=== PATIENT | male | born 1935 | race Caucasian/White ===

== ENCOUNTER 2017-08-16 22:15 | Emergency (ER) | payer MEDICARE, OTHER ==
[2017-08-16] MEDS ORDERED: Ondansetron 4 MG/2 ML SDV IVPUSH ONE (23:16)
[2017-08-16] MEDS ORDERED: Sodium Chloride 0.9% 10 ML Syringe FLUSH PRN (23:16)
--- NOTE | 2017-08-17 02:03 | EDM.PDOC ---
ED HPI GENERAL MEDICAL PROBLEM - General Chief Complaint: Diabetic Complaint Stated Complaint: HIGH BLOOD SUGARS Time Seen by Provider: 08/16/17 22:44 Source of Information: Reports: Patient, Family History Limitations: Reports: No Limitations - History of Present Illness INITIAL COMMENTS - FREE TEXT/NARRATIVE: This patient was brought in by his because of uncontrolled blood sugars. He has type 2 diabetes and takes N Griffiths for this he takes Lantus as well as Humalog. He said that he had not been on any Humalog since March because of some problems with insurance. Apparently that he was using too much. They got with his doctor and I guess a new prescription was written so he got some today and tonight was the first time that he is taking any. He continued to use the Lantus in the interim. He was seen in the ER in [place] earlier today. Tonight at supper his blood sugar was 575. That was at 6 PM and he took 15 units of Humalog. An hour later the blood sugar was in the mid 300s so he took an additional 20 units of Humalog. After that his decided to bring him to the hospital area she felt that he may have overdosed on and swollen. He hasn't eaten much at all today he vomited once right before coming to the ER. He's had some bronchitis recently - Related Data Allergies Allergy/AdvReac Type Severity Reaction Status Date / Time No Known Allergies Allergy Verified 08/16/17 22:37 Home Meds: Home Meds Aspirin 81 mg PO DAILY 08/16/17 [History] Clopidogrel [Plavix] 75 mg PO DAILY 08/16/17 [History] Enalapril [Vasotec] 7.5 mg PO DAILY 08/16/17 [History] Insulin Glarg,Human.Rec.Analog [Lantus Solostar] 20 unit SQ BID 08/16/17 [ History] Insulin Lispro [HumaLOG] 11 - 15 unit SQ TID 08/16/17 [History] Metoprolol Succinate 100 mg PO DAILY 08/16/17 [History] Spironolactone [Aldactone] 25 mg PO DAILY 08/16/17 [History] Past Medical History Cardiovascular History: Reports: Stents Respiratory History: Reports: Other (See Below) Other Respiratory History: has bronchitis now Neurological History: Reports: TIA Endocrine/Metabolic History: Reports: Diabetes, Type II - Infectious Disease History Infectious Disease History: Reports: Chicken Pox, Measles, Mumps - Past Surgical History Cardiovascular Surgical History: Reports: Coronary Artery Bypass, Coronary Artery Stent GI Surgical History: Reports: Hernia Repair/Other Social & Family History - Tobacco Use Smoking Status *Q: Never Smoker - Caffeine Use Caffeine Use: Reports: Coffee - Recreational Drug Use Recreational Drug Use: No ED ROS GENERAL - Review of Systems Review Of Systems: See Below Constitutional: Reports: No Symptoms HEENT: Reports: No Symptoms Respiratory: Reports: No Symptoms Cardiovascular: Reports: No Symptoms Endocrine: Reports: Other (As per history of present illness) GI/Abdominal: Reports: Vomiting : Reports: No Symptoms Musculoskeletal: Reports: No Symptoms Skin: Reports: No Symptoms ED EXAM GENERAL NO PERIP PULSE - Physical Exam Exam: See Below Exam Limited By: No Limitations General Appearance: Alert, WD/WN, No Apparent Distress Eye Exam: Bilateral Eye: Normal Inspection Nose: Normal Inspection Throat/Mouth: Normal Inspection Head: Atraumatic Neck: Normal Inspection Respiratory/Chest: Lungs Clear Cardiovascular: Regular Rate, Rhythm, No Murmur GI/Abdominal: Soft, Non-Tender Extremities: Normal Inspection Neurological: Alert, Oriented, Normal Cognition Psychiatric: Normal Affect Skin Exam: Warm, Dry Course - Vital Signs Last Recorded V/S: Last Vital Signs Temp 35.5 C 08/16/17 22:43 Pulse 93 08/17/17 01:34 Resp 16 08/16/17 22:43 BP 105/46 L 08/17/17 01:34 Pulse Ox 93 L 08/16/17 22:43 - Orders/Labs/Meds Orders: Active Orders 24 hr Category Date Time Status Saline Lock Insert [OM.PC] Urgent Oth 08/16/17 23:16 Ordered Labs: Laboratory Tests 08/16/17 08/16/17 Range/Units 23:22 23:22 WBC 6.2 (4.5-11.0) K/uL RBC 4.56 (4.30-5.90) M/uL Hgb 13.5 (12.0-15.0) g/dL Hct 39.3 L (40.0-54.0) % MCV 86 (80-98) fL MCH 30 (27-31) pg MCHC 34 (32-36) % Plt Count 171 (150-400) K/uL Neut % (Auto) 73 H (36-66) % Lymph % (Auto) 13 L (24-44) % [place] % (Auto) 14 H (2-6) % Eos % (Auto) 0 L (2-4) % Baso % (Auto) 0 (0-1) % Sodium 133 L (140-148) mmol/L Potassium 3.8 (3.6-5.2) mmol/L Chloride 98 L (100-108) mmol/L Carbon Dioxide 23 (21-32) mmol/L Anion Gap 15.8 H (5.0-14.0) mmol/L BUN 25 H (7-18) mg/dL Creatinine 1.7 H (0.8-1.3) mg/dL Est Cr Clr Drug Dosing 31.86 mL/min Estimated GFR (MDRD) 39 L (>60) Glucose 69 L (74-106) mg/dL Calcium 8.6 (8.5-10.1) mg/dL Total Bilirubin 0.4 (0.2-1.0) mg/dL AST 38 H (15-37) U/L ALT 29 (12-78) U/L Alkaline Phosphatase 49 (46-116) U/L Total Protein 7.2 (6.4-8.2) g/dL Albumin 3.2 L (3.4-5.0) g/dL Globulin 4.0 H (2.3-3.5) g/dL Albumin/Globulin Ratio 0.8 L (1.2-2.2) Meds: Medications Discontinued Medications Generic Name Dose Route Start Last Admin Trade Name Freq PRN Reason Stop Dose Admin Ondansetron HCl 4 mg 08/16/17 23:16 08/16/17 23:24 Zofran IVPUSH 08/16/17 23:17 4 mg ONETIME ONE Administration Sodium Chloride 10 ml 08/16/17 23:16 08/16/17 23:24 Saline Flush FLUSH 10 ml ASDIRECTED PRN Administration Keep Vein Open - Re-Assessments/Exams Free Text/Narrative Re-Assessment/Exam: 08/17/17 06:42 Labs were noted on this patient. Because his blood sugar was expected possibly go low a saline lock was placed. We began feeding the patient immediately. Initially he ate some pudding and then later on I had him eat some crackers peanut butter and some more pudding and so forth his blood sugars second one was again a little on the low side but the final blood sugar was greater than 200. My purpose here was to ensure that this patient does not become hypoglycemic. His wanted me to admit him and get his blood sugar stabilized and so forth however his blood sugars have been out of control for several months and I explained that he just needs to get back on his regular dose of insulin and work with his doctor to get the blood sugar under control. Departure - Departure Time of Disposition: 02:02 Disposition: Home, Self-Care 01 Condition: Fair Clinical Impression: Hyperglycemia - Discharge Information Instructions: Hyperglycemia, [id number] Referrals: PCP,None [Primary Care Provider] - Forms: ED Department Discharge Additional Instructions: Go back to your regular insulins doses in the morning. Be sure to be consistent with your insulins doses and be consistent with your diet. Plan to see your doctor within the next few days. When you get home try taking a half teaspoon of salt in a glass of water that may help with the cramps - My Orders Last 24 Hours: My Active Orders 08/16/17 23:16 Saline Lock Insert [OM.PC] Urgent - Assessment/Plan Last 24 Hours: My Active Orders 08/16/17 23:16 Saline Lock Insert [OM.PC] Urgent
== END 2017-08-17 02:23 | disposition home or self-care (01) ==
LOC: JP.ED 22:15
DX: E11.65 Type 2 diabetes mellitus with hyperglycemia (principal); Z79.82 Long term (current) use of aspirin; Z79.4 Long term (current) use of insulin; Z79.899 Other long term (current) drug therapy; Z86.73 Personal history of transient ischemic attack (TIA), and cerebral infarction without residual deficits
CPT/HCPCS: 36415; 80053; 82962; 85025; 96374; 99285; J2405; J7050

== ENCOUNTER 2019-11-19 15:50 | Emergency (ER) | payer MEDICARE, OTHER ==
--- NOTE | 2019-11-19 17:15 | EDM.PDOC ---
<Sergio Godfrey - Last Filed: 11/19/19 23:22> ED HPI GENERAL MEDICAL PROBLEM - General Chief Complaint: General Stated Complaint: BLOOD CLOTS Time Seen by Provider: 11/19/19 17:00 - Related Data Allergies Allergy/AdvReac Type Severity Reaction Status Date / Time ezetimibe [From Vytorin] Allergy Other Verified 11/19/19 16:42 simvastatin [From Vytorin] Allergy Other Verified 11/19/19 16:42 Home Meds: Home Meds Aspirin 81 mg PO DAILY 08/16/17 [History] Clopidogrel [Plavix] 75 mg PO DAILY 08/16/17 [History] Insulin Glarg,Human.Rec.Analog [Lantus Solostar] 25 unit SQ BID 08/16/17 [History] Metoprolol Succinate 12.5 mg PO DAILY 08/16/17 [History] Insulin Regular, Human [Novolin R Flexpen] 14 unit SQ TID 11/19/19 [History] Isosorbide Dinitrate 5 mg PO BID 11/19/19 [History] Nitroglycerin [Nitrostat] 0.4 mg SL ASDIRECTED 11/19/19 [History] fluorouraciL [Efudex 5% Cream] 40 gm .XX ASDIRECTED PRN 11/19/19 [History] Course - Re-Assessments/Exams Free Text/Narrative Re-Assessment/Exam: 11/19/19 23:22 I assumed care of patient at change of shift from Dr. Faith. At this time we are awaiting completion of CT angiogram tests of chest, neck, head. After radiology completion and analysis of the studies, I returned to the room to meet with the patient and his . He is asymptomatic at this time. He did have a brief episode of chest pain in the room prior to my first meeting with him that this is a daily occurrence and he took 1 of his own nitroglycerin as is his usual practice. There is no evidence of new thrombus in the chest neck or head. There is significant vascular stenoses everywhere. See radiologist report. I reviewed his case with Dr. Barnhart of the [facility] system. Based on what I described, he does not feel any modification in care needs to occur, specifically the patient does not need heparinization. He should continue current medications, which include aspirin and Plavix. A copy of all of his angiogram studies were provided on disc for patient and his family to review with local provider at home. They should forward it somehow to the [facility] system for inclusion in the patient's record. Contact [facility] cardiology with any additional questions. He was discharged in stable condition. Departure - Departure Time of Disposition: 20:38 Disposition: Home, Self-Care 01 Clinical Impression: Carotid stenosis, bilateral - Discharge Information Instructions: Carotid Artery Disease Referrals: Trev Gillespie MD [Primary Care Provider] - Forms: ED Department Discharge Additional Instructions: Continue current medications. Show the disc of your CAT scan images to Dr. Michelle mata and he could arrange to get it to the [facility] system that is familiar with you. Return to ER if feeling worse in any way. <Wesly Faith - Last Filed: 11/21/19 07:55> ED HPI GENERAL MEDICAL PROBLEM - General Source of Information: Reports: Patient History Limitations: Reports: No Limitations - History of Present Illness INITIAL COMMENTS - FREE TEXT/NARRATIVE: 84-year-old male sent in from an outside hospital for more vascular studies because of recent persistent angina, asymmetric blood pressures in the upper extremities, and positive findings on Doppler ultrasound of the carotid arteries. Patient self has no complaints other than some persistent recurring chest discomfort which is chronic. Onset: Unknown/Unsure Associated Symptoms: Reports: No Other Symptoms denies Pain Score (Numeric/FACES): 0 Past Medical History HEENT History: Reports: Hard of Hearing Cardiovascular History: Reports: Blood Clots/VTE/DVT, CAD, High Cholesterol, Hypertension, Stents Respiratory History: Reports: Other (See Below) Other Respiratory History: has bronchitis now Neurological History: Reports: CVA, TIA Endocrine/Metabolic History: Reports: Diabetes, Type II, Obesity/BMI 30+ - Infectious Disease History Infectious Disease History: Reports: Measles, Mumps - Past Surgical History HEENT Surgical History: Reports: Cataract Surgery Cardiovascular Surgical History: Reports: Coronary Artery Bypass, Coronary Artery Stent GI Surgical History: Reports: Colonoscopy, Hernia Repair/Other Social & Family History - Tobacco Use Smoking Status *Q: Never Smoker Second Hand Smoke Exposure: No - Caffeine Use Caffeine Use: Reports: Coffee, Tea - Recreational Drug Use Recreational Drug Use: No ED ROS GENERAL - Review of Systems Review Of Systems: See Below Constitutional: Denies: Fever, Chills Respiratory: Denies: Shortness of Breath Cardiovascular: Reports: Chest Pain GI/Abdominal: Denies: Abdominal Pain, Nausea, Vomiting Neurological: Denies: Dizziness, Headache ED EXAM, GENERAL - Physical Exam Exam: See Below Exam Limited By: No Limitations General Appearance: Alert, No Apparent Distress Eye Exam: Bilateral Eye: EOMI Head: Atraumatic Neck: Supple, Non-Tender Respiratory/Chest: Lungs Clear Cardiovascular: Regular Rate, Rhythm GI/Abdominal: Soft, Non-Tender Extremities: Pedal Edema (Trace of ankle edema is symmetric), Other (Blood pressure of the upper extremities is equal today) Neurological: Alert, Oriented Course - Vital Signs Last Recorded V/S: Last Vital Signs Temp 97.4 F 11/19/19 16:53 Pulse 73 11/19/19 17:50 Resp 16 11/19/19 17:06 BP 148/72 H 11/19/19 17:50 Pulse Ox 96 11/19/19 17:06 - Orders/Labs/Meds Labs: Laboratory Tests 11/19/19 11/19/19 Range/Units 16:45 16:45 WBC 7.9 (4.5-11.0) K/uL RBC 4.82 (4.30-5.90) M/uL Hgb 13.5 (12.0-15.0) g/dL Hct 42.9 (40.0-54.0) % MCV 89 (80-98) fL MCH 28 (27-31) pg MCHC 32 (32-36) % Plt Count 201 (150-400) K/uL Neut % (Auto) 64 (36-66) % Lymph % (Auto) 26 (24-44) % [place] % (Auto) 8 H (2-6) % Eos % (Auto) 2 (2-4) % Baso % (Auto) 0 (0-1) % Sodium 139 L (140-148) mmol/L Potassium 4.4 (3.6-5.2) mmol/L Chloride 104 (100-108) mmol/L Carbon Dioxide 28 (21-32) mmol/L Anion Gap 11.4 (5.0-14.0) mmol/L BUN 17 (7-18) mg/dL Creatinine 1.4 H (0.8-1.3) mg/dL Est Cr Clr Drug Dosing 36.08 mL/min Estimated GFR (MDRD) 48 L (>60) Glucose 165 H (74-106) mg/dL Calcium 8.7 (8.5-10.1) mg/dL Meds: Medications Discontinued Medications Generic Name Dose Route Start Last Admin Trade Name Nadira PRN Reason Stop Dose Admin Sodium Chloride 84 mls @ 3.5 mls/sec 11/19/19 17:30 11/19/19 18:08 Normal Saline IV 3.5 mls/sec ASDIRECTED MARIA G Administration Sodium Chloride 1,000 mls @ 1,000 mls/hr 11/19/19 17:30 11/19/19 17:39 Normal Saline IV 1,000 mls/hr ASDIRECTED MARIA G Administration Sodium Chloride 100 mls @ 3.5 mls/sec 11/19/19 17:30 11/19/19 18:15 Normal Saline IV 3.5 mls/sec ASDIRECTED MARIA G Administration Iopamidol 100 ml 11/19/19 17:30 11/19/19 18:09 Isovue-370 (76%) IV 100 ml . DIRECTED MARIA G Administration Iopamidol 100 ml 11/19/19 17:30 11/19/19 18:15 Isovue-370 (76%) IV 100 ml . DIRECTED MARIA G Administration Sodium Chloride 10 ml 11/19/19 17:22 11/19/19 18:08 Saline Flush FLUSH 11/19/19 17:23 10 ml ONETIME ONE Administration - Re-Assessments/Exams Free Text/Narrative Re-Assessment/Exam: 11/19/19 18:10 Normal saline bolus was initiated and CBC and BMP were obtained. GFR is 48 creatinine 1.3, CT of the head neck and chest angiogram were ordered per specialty recommendations. They will be contacted with results when available. Sepsis Event Note (ED) - Evaluation Sepsis Screening Result: No Definite Risk
[2019-11-19] MEDS ORDERED: Sodium Chloride 0.9% 10 ML Syringe FLUSH ONE (17:22)
[2019-11-19] MEDS ORDERED: Iopamidol 755 Mg/ML 100 ML Bottle IV SCH ×2 (17:30)
[2019-11-19] MEDS ORDERED: Sodium Chloride 0.9% 100 ML IV SCH (17:30)
[2019-11-19] MEDS ORDERED: Sodium Chloride 0.9% 1,000 ML IV SCH (17:30)
--- NOTE | 2019-11-19 19:20 | CRLCT ---
INDICATION: Evaluate for aneurysm. CT CHEST WITH CONTRAST TECHNIQUE: Multidetector CT imaging was performed through the chest following intravenous contrast administration. The exam was performed in conjunction with CTA of the head and neck, with a total of 200 mL Isovue 370 given. Coronal and sagittal reconstructions of the chest were generated. COMPARISON: None. FINDINGS: Lungs and airways: Age-indeterminate diffuse bilateral interstitial prominence, greatest in the subpleural regions. Central airways are patent. Pleura and pleural spaces: No pleural effusions or pneumothorax. Heart and mediastinum: Borderline cardiac enlargement. No significant pericardial effusion. No pathologically enlarged mediastinal lymph nodes. Vascular structures: No filling defects in the pulmonary arterial tree to suggest pulmonary emboli. Status post CABG. Normal caliber thoracic aorta. No evidence of aortic dissection. Aortic atherosclerotic changes, greatest in the included abdominal aorta. Moderate stenosis at the bifurcation of the right innominate artery. 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 Moderate to severe stenosis of the proximal right subclavian artery. Mild to moderate narrowing of the proximal celiac axis and left renal artery origin. Chest wall and axillae: Small subcutaneous nodule in the left parasternal region, likely an incidental sebaceous cyst. No axillary lymphadenopathy identified. Osseous structures: Spinal degenerative changes. Healed median sternotomy. No acute fractures identified. Upper abdomen: Moderate sized hiatal hernia. Bilateral renal parapelvic cysts. Colonic diverticulosis. IMPRESSION: 1. Age-indeterminate diffuse interstitial prominence in the lungs, favored to largely represent interstitial fibrosis although superimposed interstitial edema is not entirely excluded. 2. No thoracic aortic aneurysm or dissection. No pulmonary emboli identified. 3. 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 4. Nonacute additional findings as noted above. POLINA VENEGAS MD [employer] Dictated by Gabino Venegas MD @ 11/19/2019 7:16:50 PM Dictated by: Gabino Venegas MD @ 11/19/2019 19:17:40 (Electronically Signed)
--- NOTE | 2019-11-19 19:36 | CRLCT ---
DATE: 11/19/2019 CLINICAL HISTORY: Patient with carotid stenosis. TECHNIQUE: Standard helical CT image acquisition through the head and neck was performed after intravenous contrast bolus enhancement. Multiplanar reconstructed images were performed and interpreted. COMPARISON: None. FINDINGS: The origins of the great vessels from the aortic arch are patent. The origin of the right vertebral artery is occluded. The origin of the left vertebral artery demonstrates mild narrowing. The common carotid arteries are patent There is a mild (<50%) stenosis at the origin of the right internal carotid artery by NASCET criteria. This is caused by calcified plaque with a <2mm residual lumen. There is a mild (<50%) stenosis at the origin of the left internal carotid artery by NASCET criteria. This is caused by calcified plaque with a <2mm residual lumen. The rest of the cervical segments of the internal carotid arteries are patent up to their intracranial segments. The left vertebral artery is dominant. The cervical segments of the left vertebral artery are patent. There is extensive severe intracranial atherosclerosis with moderate to severe stenosis in the carotid siphons, severe stenoses in the bilateral M1 segments, severe stenosis in the left P2 segment and a severe stenosis in the right P1 segment. The visualized lung apices are unremarkable The thyroid gland is unremarkable. The soft tissues of the neck are unremarkable. There are degenerative changes in the cervical spine. IMPRESSION: 1. Extensive severe intracranial atherosclerosis with moderate to severe stenosis in the carotid siphons, severe stenoses in the bilateral M1 segments, severe stenosis in the proximal intracranial left vertebral artery, severe stenosis in the left P2 segment and a severe stenosis in the right P1 segment. 2. Mild stenosis at the origins of the internal carotid arteries bilaterally. 3. Mild stenosis at the origin of the left vertebral artery. Chronically-occluded right vertebral artery. Please note that all CT scans at this facility use dose modulation, iterative reconstruction, and/or weight-based dosing when appropriate to reduce radiation dose to as low as reasonably achievable. Dictated by Lindsay Guzman MD @ Nov 19 2019 8:33PM Signed by Dr. Lindsay Guzman @ Nov 19 2019 8:33PM
--- NOTE | 2019-11-20 09:15 | CRLCT ---
Final Report: DATE: 11/19/2019 CLINICAL HISTORY: Patient with carotid stenosis. TECHNIQUE: Standard helical CT image acquisition through the head and neck was performed after intravenous contrast bolus enhancement. Multiplanar reconstructed images were performed and interpreted. COMPARISON: None. FINDINGS: The origins of the great vessels from the aortic arch are patent. The origin of the right vertebral artery is occluded. The origin of the left vertebral artery demonstrates mild narrowing. The common carotid arteries are patent There is a mild (<50%) stenosis at the origin of the right internal carotid artery by NASCET criteria. This is caused by calcified plaque with a <2mm residual lumen. There is a mild (<50%) stenosis at the origin of the left internal carotid artery by NASCET criteria. This is caused by calcified plaque with a <2mm residual lumen. The rest of the cervical segments of the internal carotid arteries are patent up to their intracranial segments. The left vertebral artery is dominant. The cervical segments of the left vertebral artery are patent. There is extensive severe intracranial atherosclerosis with moderate to severe stenosis in the carotid siphons, severe stenoses in the bilateral M1 segments, severe stenosis in the left P2 segment and a severe stenosis in the right P1 segment. The visualized lung apices are unremarkable The thyroid gland is unremarkable. The soft tissues of the neck are unremarkable. There are degenerative changes in the cervical spine. IMPRESSION: 1. Extensive severe intracranial atherosclerosis with moderate to severe stenosis in the carotid siphons, severe stenoses in the bilateral M1 segments, severe stenosis in the proximal intracranial left vertebral artery, severe stenosis in the left P2 segment and a severe stenosis in the right P1 segment. 2. Mild stenosis at the origins of the internal carotid arteries bilaterally. 3. Mild stenosis at the origin of the left vertebral artery. Chronically- occluded right vertebral artery. Please note that all CT scans at this facility use dose modulation, iterative reconstruction, and/or weight-based dosing when appropriate to reduce radiation dose to as low as reasonably achievable. Dictated by Lindsay Guzman MD @ Nov 19 2019 8:24PM Signed by: Lindsay Guzman MD @11/19/2019 8:32:46 PM (Electronic Signature) [email or web address]
== END 2019-11-19 21:15 | disposition home or self-care (01) ==
LOC: JP.ED 15:50
DX: I65.23 Occlusion and stenosis of bilateral carotid arteries (principal); E11.9 Type 2 diabetes mellitus without complications; E66.9 Obesity, unspecified; I10 Essential (primary) hypertension; E78.00 Pure hypercholesterolemia, unspecified; I25.10 Atherosclerotic heart disease of native coronary artery without angina pectoris; Z95.5 Presence of coronary angioplasty implant and graft; Z88.8 Allergy status to other drugs, medicaments and biological substances; Z86.73 Personal history of transient ischemic attack (TIA), and cerebral infarction without residual deficits; Z79.4 Long term (current) use of insulin; Z79.82 Long term (current) use of aspirin; Z79.02 Long term (current) use of antithrombotics/antiplatelets; Z79.899 Other long term (current) drug therapy
CPT/HCPCS: 36415; 70496; 70498; 71275; 80048; 85025; 96360; 99284; J7030; J7050; Q9967; 99283